=== PATIENT | male | born 2000 | race Caucasian/White ===

== ENCOUNTER 2024-03-03 13:42 | Emergency (ER) | payer OTHER ==
[2024-03-03 13:47] VITALS: TEMP 97
--- NOTE | 2024-03-03 13:49 | ERPHSYRPT ---
- History of Present Illness Time Seen by Provider: 03/03/24 13:48 Historian: patient Exam Limitations: no limitations Patient Subjective Stated Complaint: Pt states "I have had chest pain for the past 2 weeks." Triage Nursing Assessment: Pt presented alert and oriented X 3, skin pwd. Pt ambulates with an upright steady gait, able to speak in clear full sentences. PT resting comfortably on the bed. Physician History: This is a 23-year-old white male patient who presents with intermittent sharp left anterior chest pain for 2 weeks. Patient states that this pain has been sharp and sometimes associated with shortness of breath. Earlier today became more constantly sharp with more intensity. However, the pain completely stopped/resolved 20 minutes prior to arrival. Patient denies medication use. Patient denies illicit drug use. Patient is a daily smoker of tobacco cigarettes. Patient has no known drug allergies. His vital signs are stable upon arrival to the emergency department and his room air oxygen saturation levels 98 to 99%. Timing/Duration: week(s) (2), intermittent, worse (Became constant late morning. Completely resolved 20 minutes prior to arrival) Chest Pain Radiation: no radiation Severity of Pain-Max: moderate Severity of Pain-Current: mild Modifying Factors: Improves With: nothing Associated Symptoms: denies symptoms Prior Chest Pain/Cardiac Workup: no prior chest pain Nitro Today/Relief: no nitro taken today Aspirin Treatment Today: no aspirin today Allergies/Adverse Reactions: No Known Drug Allergies Allergy (Verified 03/03/24 13:47) Home Medications: No Reportable Medications [No Reported Medications] 03/03/24 [History] Hx Tetanus, Diphtheria Vaccination/Date Given: No Hx Influenza Vaccination/Date Given: No Hx Pneumococcal Vaccination/Date Given: No Immunizations Up to Date: No Travel Risk - International Travel Have you traveled outside of the country in past 3 weeks: No - Emerging Infectious Disease Are you exhibiting symptoms associated with any current EIDs: No - Review of Systems Constitutional: No Symptoms Eyes: No Symptoms Ears, Nose, & Throat: No Symptoms Respiratory: No Symptoms Cardiac: Chest Pain Abdominal/Gastrointestinal: No Symptoms Genitourinary Symptoms: No Symptoms Musculoskeletal: No Symptoms Skin: No Symptoms Neurological: No Symptoms Psychological: No Symptoms Endocrine: No Symptoms Hematologic/Lymphatic: No Symptoms Immunological/Allergic: No Symptoms All Other Systems: Reviewed and Negative - Past Medical History Pertinent Past Medical History: No - Past Surgical History Past Surgical History: No - Social History Smoking Status: Current every day smoker How long have you smoked: years Exposure to second hand smoke: No Drug Use: none - Social Determinants of Health Will the patient participate in the screening: Declined to provide - Nursing Vital Signs Nursing Vital Signs: Initial Vital Signs Temperature 97.0 F 03/03/24 13:42 Pulse Rate 96 H 03/03/24 13:42 Respiratory Rate 20 03/03/24 13:42 Blood Pressure 154/90 03/03/24 13:42 O2 Sat by Pulse Oximetry 98 03/03/24 13:42 Pain Scale Pain Intensity 0 - Physical Exam General Appearance: no apparent distress, alert, anxiety Eye Exam: PERRL/EOMI, eyes nml inspection Ears, Nose, Throat Exam: normal ENT inspection, moist mucous membranes Neck Exam: normal inspection, non-tender, supple, full range of motion Respiratory Exam: normal breath sounds, lungs clear, airway intact, No chest tenderness, No respiratory distress Cardiovascular Exam: regular rate/rhythm, normal heart sounds, normal peripheral pulses Gastrointestinal/Abdomen Exam: soft, normal bowel sounds, No tenderness Rectal Exam: not done Back Exam: normal inspection, normal range of motion, No CVA tenderness, No vertebral tenderness Extremity Exam: normal inspection, normal range of motion, pelvis stable Neurologic Exam: alert, oriented x 3, cooperative, 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 QTc is 411.) Ordered Tests: Active Orders 24 hr Category Date Time Status Inspector Metal Can STAT Care 03/03/24 13:49 Active EKG-ER Only STAT Care 03/03/24 13:48 Active IV Insertion STAT Care 03/03/24 13:48 Active Pulse Oximetry (ED) STAT Care 03/03/24 13:48 Active CHEST 1 VIEW (PORTABLE) Stat Exams 03/03/24 14:00 Completed CBC W DIFF Stat Lab 03/03/24 13:48 Completed CMP Stat Lab 03/03/24 14:01 Completed D-DIMER QUANTITATIVE Stat Lab 03/03/24 14:01 Completed MAGNESIUM Stat Lab 03/03/24 14:01 Completed PROTIME WITH INR Stat Lab 03/03/24 14:01 Completed TROPONIN Q4H Lab 03/03/24 14:01 Completed TROPONIN Q4H Lab 03/03/24 18:00 Ordered TROPONIN Q4H Lab 03/03/24 22:00 Ordered Medication Summary Discontinued Medications Generic Name Dose Route Start Last Admin Trade Name Nimesh PRN Reason Stop Dose Admin Aspirin 324 mg 03/03/24 13:48 03/03/24 13:54 Aspirin 81 Mg Tab.Chew PO 03/03/24 13:49 324 mg STAT ONE Administration Aspirin Confirm 03/03/24 13:54 Aspirin 81 Mg Tab.Chew Administered 03/03/24 13:55 Dose 81 mg .ROUTE .STK-MED ONE Lab/Rad Data: Laboratory Result Diagrams 03/03/24 13:48 03/03/24 14:01 Laboratory Results 03/03/24 03/03/24 03/03/24 Range/Units 14:01 14:01 14:01 WBC (4.23-9.07) x10^3/uL RBC (4.63-6.08) x10^6/uL Hgb (13.7-17.5) g/dL Hct (40.1-51.0) % MCV (79.0-92.2) fL MCH (25.7-32.2) pg MCHC (32.3-36.5) g/dL RDW (11.6-14.4) % Plt Count (163-337) x10^3/uL MPV (9.4-12.4) fL Gran % (34.0-67.9) % Immature Gran % (Auto) (0.001-0.429) % Nucleat RBC Rel Count (0.00-0.2) % Eos # (Auto) (0.04-0.54) x10^3/uL Immature Gran # (Auto) (0.001-0.031) x10^3u/L Absolute Lymphs (auto) (1.32-3.57) x10^3/uL Absolute Monos (auto) (0.30-0.82) x10^3/uL Absolute Nucleated RBC (0.00-0.012) x10^3u/L Lymphocytes % (21.8-53.1) % Monocytes % (5.3-12.2) % Eosinophils % (0.8-7.0) % Basophils % (0.2-1.2) % Absolute Granulocytes (1.78-5.38) x10^3/uL Basophils # (0.01-0.08) x10^3/uL PT 10.3 (9.4-12.5) SECONDS INR 0.94 (0.8-3.0) D-Dimer < 0.19 (0.0-0.50) mg/L Sodium 140 (135-145) mmol/L Potassium 3.8 (3.5-5.1) mmol/L Chloride 107 (98-107) mmol/L Carbon Dioxide 23 (22-30) mmol/L Anion Gap 14.6 (5-15) MEQ/L BUN 14 (9-20) mg/dL Creatinine 1.03 (0.66-1.25) mg/dL Estimated GFR 104.7 ML/MIN Glucose 136 H (74-106) mg/dL Calcium 9.7 (8.4-10.2) mg/dL Magnesium 1.9 (1.6-2.3) mg/dL Total Bilirubin 0.20 (0.2-1.3) mg/dL AST 37 (17-59) U/L ALT 62 H (0-50) U/L Alkaline Phosphatase 53 (38-126) U/L Troponin I < 0.012 (0.000-0.033) ng/mL Serum Total Protein 7.4 (6.3-8.2) g/dL Albumin 4.8 (3.5-5.0) g/dL 03/03/24 Range/Units 13:48 WBC 9.3 H (4.23-9.07) x10^3/uL RBC 5.16 (4.63-6.08) x10^6/uL Hgb 15.8 (13.7-17.5) g/dL Hct 45.6 (40.1-51.0) % MCV 88.4 (79.0-92.2) fL MCH 30.6 (25.7-32.2) pg MCHC 34.6 (32.3-36.5) g/dL RDW 12.5 (11.6-14.4) % Plt Count 356 H (163-337) x10^3/uL MPV 9.4 (9.4-12.4) fL Gran % 64.2 (34.0-67.9) % Immature Gran % (Auto) 0.3 (0.001-0.429) % Nucleat RBC Rel Count 0.0 (0.00-0.2) % Eos # (Auto) 0 L (0.04-0.54) x10^3/uL Immature Gran # (Auto) 0.03 (0.001-0.031) x10^3u/L Absolute Lymphs (auto) 2.65 (1.32-3.57) x10^3/uL Absolute Monos (auto) 0.59 (0.30-0.82) x10^3/uL Absolute Nucleated RBC 0.00 (0.00-0.012) x10^3u/L Lymphocytes % 28.6 (21.8-53.1) % Monocytes % 6.4 (5.3-12.2) % Eosinophils % 0.0 L (0.8-7.0) % Basophils % 0.5 (0.2-1.2) % Absolute Granulocytes 5.95 H (1.78-5.38) x10^3/uL Basophils # 0.05 (0.01-0.08) x10^3/uL PT (9.4-12.5) SECONDS INR (0.8-3.0) D-Dimer (0.0-0.50) mg/L Sodium (135-145) mmol/L Potassium (3.5-5.1) mmol/L Chloride (98-107) mmol/L Carbon Dioxide (22-30) mmol/L Anion Gap (5-15) MEQ/L BUN (9-20) mg/dL Creatinine (0.66-1.25) mg/dL Estimated GFR ML/MIN Glucose (74-106) mg/dL Calcium (8.4-10.2) mg/dL Magnesium (1.6-2.3) mg/dL Total Bilirubin (0.2-1.3) mg/dL AST (17-59) U/L ALT (0-50) U/L Alkaline Phosphatase (38-126) U/L Troponin I (0.000-0.033) ng/mL Serum Total Protein (6.3-8.2) g/dL Albumin (3.5-5.0) g/dL - Progress Progress: improved, re-examined Air Movement: good Progress Note: 03/03/24 14:27 My medical decision making in the assignment of moderate complexity to this patient's medical issue today is based on review of the patient's past medical history, reviewed patient's medication list, reviewed patient drug allergy list, history present illness and physical findings on examination. The workup includes placement of a intravenous line, CBC, CMP, magnesium level, D-dimer level, PT/INR, troponin level, twelve-lead EKG. Differential diagnosis includes but is not limited to electrolyte abnormalities, arrhythmia, pulmonary embolus, myocardial infarction, electrolyte abnormalities, anxiety about health. 03/03/24 15:04 I interpreted the patient's laboratory data results. Based on the laboratory data results the patient has no acute or emergent medical issue. Patient heart score is low and less than 4. The chest x-ray was interpreted by the radiologist and I reviewed the impression. The impression states normal chest x-ray findings. No acute cardiopulmonary process. Blood Culture(s) Obtained: No Antibiotics given: No Counseled pt/family regarding: lab results, diagnosis, need for follow-up, rad results Medical Desision Making - Diagnostic Testing Diagnostic test were ordered, analyzed, and reviewed by me: Yes Radiological Interpretation: Reviewed by me, Teleradiologist Report - Risk of complications Minimal Risk: Minimal risk of morbidity - Departure Departure Disposition: Home Clinical Impression: Nonspecific chest pain Condition: Stable Critical Care Time: No Additional Instructions: Drink plenty fluids. Take Tylenol and ibuprofen for pain control. Call your primary care provider today to make arrange for follow-up appointment to be seen in the next 3 to 5 days.
[2024-03-03] MEDS ORDERED: BABY ASPIRIN 81 MG CHEW ONE (13:54)
[2024-03-03] MEDS: BABY ASPIRIN 81 MG CHEW PO ONE (13:54)
[2024-03-03 13:58] LABS: Absolute Neutrophil Ct (ANC) 5.95 x10^3/uL (1.78-5.38); BASOPHIL % 0.5 % (0.2-1.2); Basophil (Absolute #) 0.05 x10^3/uL (0.01-0.08); Eosinophil (Absolute #) 0 x10^3/uL (0.04-0.54); Hematocrit 45.6 % (40.1-51.0); Hemoglobin 15.8 g/dL (13.7-17.5); IMMATURE GRAN # 0.03 x10^3u/L (0.001-0.031); IMMATURE GRAN % 0.3 % (0.001-0.429); Lymphocyte (Absolute #) 2.65 x10^3/uL (1.32-3.57); Lymphocytes % 28.6 % (21.8-53.1); Mean Cell Volume 88.4 fL (79.0-92.2); Mean Corpuscular Hemoglobin 30.6 pg (25.7-32.2); Mean Corpuscular Hgb Concent. 34.6 g/dL (32.3-36.5); Mean Platelet Volume 9.4 fL (9.4-12.4); Monocyte (Absolute #) 0.59 x10^3/uL (0.30-0.82); Monocytes % 6.4 % (5.3-12.2); Neutrophil % 64.2 % (34.0-67.9); Platelet Count 356 x10^3/uL (163-337); Red Blood Count 5.16 x10^6/uL (4.63-6.08); Red Cell Distribution Width 12.5 % (11.6-14.4); White Blood Count 9.3 x10^3/uL (4.23-9.07)
[2024-03-03 14:16] LABS: ALBUMIN 4.8 g/dL (3.5-5.0); ANION GAP 14.6 MEQ/L (5-15); BILIRUBIN,TOTAL 0.2 mg/dL (0.2-1.3); Calcium 9.7 mg/dL (8.4-10.2); Creatinine 1 1.03 mg/dL (0.66-1.25); D-DIMER QUANTITATIVE < 0.19 mg/L (0.0-0.50); EST GLOMERULAR FILTRATION RATE 104.7 ML/MIN; INR 0.94 (0.8-3.0); MAGNESIUM 1.9 mg/dL (1.6-2.3); PROTIME 10.3 SECONDS (9.4-12.5); Potassium 3.8 mmol/L (3.5-5.1); Total Protein 7.4 g/dL (6.3-8.2)
--- NOTE | 2024-03-03 14:21 | XRAY ---
Indication: Chest pain. Comparison: None Portable chest demonstrates normal heart, lungs, and bony thorax.
[2024-03-03 15:08] VITALS: O2SAT 98
[2024-03-03 15:13] VITALS: BP 125/65; PULSE 81; RESP 14
== END 2024-03-03 15:25 | disposition home or self-care (01) ==
LOC: ED 13:42
DX: R07.9 Chest pain, unspecified (principal); Z72.0 Tobacco use
CPT/HCPCS: 36000; 36415; 71045; 80053; 83735; 84484; 85025; 85379; 85610; 93005; 93041; 94760; 99284; A9270-GY

== ENCOUNTER 2024-03-14 09:23 | Emergency (ER) | payer OTHER ==
--- NOTE | 2024-03-14 09:27 | ERPHSYRPT ---
- History of Present Illness Time Seen by Provider: 03/14/24 09:27 Source: patient Exam Limitations: no limitations Physician History: This is a 23-year-old white male patient and does not have a primary care provider, he takes no medications chronically and he has no known drug allergies and presents with shortness of breath that is worsened over the last few days. His room air oxygen saturation level on arrival is 96%. He does not appear to be in any distress. He arrives by private vehicle. On 03/03/2024 patient had a full workup to evaluate him for his chest pain symptoms. That workup was negative. An EKG was performed and it showed normal sinus rhythm at 93 bpm. The remainder of the EKG was normal and nonacute. Today's twelve-lead EKG will be compared to that twelve-lead EKG. Patient is a daily smoker of tobacco cigarettes. He does state at his work he is exposed to a lot of dust and chemicals. He denies illicit drug use. He denies chest pain. He denies fever. He denies cough. He denies abdominal pain. Timing/Duration: day(s) (The last few days) Activities at Onset: activity (Worsens) Severity of Dyspnea-Max: mild (To moderate) Severity of Dyspnea-Current: mild (To moderate) Possible Cause: no prior episodes Modifying Factors: Improves With: activity (Worsens) Associated Symptoms: denies symptoms, No cough, No chest pain/discomfort, No fever, No leg swelling, No productive cough Allergies/Adverse Reactions: No Known Drug Allergies Allergy (Verified 03/14/24 09:29) Hx Tetanus, Diphtheria Vaccination/Date Given: No Hx Influenza Vaccination/Date Given: No Hx Pneumococcal Vaccination/Date Given: No Travel Risk - International Travel Have you traveled outside of the country in past 3 weeks: No - Emerging Infectious Disease Are you exhibiting symptoms associated with any current EIDs: No - Review of Systems Constitutional: No Symptoms Eyes: No Symptoms Ears, Nose, & Throat: No Symptoms Respiratory: Dyspnea (Mild to moderate) Cardiac: No Symptoms Abdominal/Gastrointestinal: No Symptoms Genitourinary Symptoms: No Symptoms Musculoskeletal: No Symptoms Skin: No Symptoms Neurological: No Symptoms Psychological: No Symptoms Endocrine: No Symptoms Hematologic/Lymphatic: No Symptoms Immunological/Allergic: No Symptoms All Other Systems: Reviewed and Negative - Past Medical History Pertinent Past Medical History: No - Past Surgical History Past Surgical History: No - Social History Smoking Status: Current every day smoker How long have you smoked: years Exposure to second hand smoke: No Drug Use: none - Social Determinants of Health Will the patient participate in the screening: Declined to provide - Nursing Vital Signs Nursing Vital Signs: Initial Vital Signs Blood Pressure 112/70 03/14/24 09:30 O2 Sat by Pulse Oximetry 95 03/14/24 09:30 Pain Scale Pain Intensity 0 - Physical Exam General Appearance: no apparent distress, alert, anxiety Eye Exam: PERRL/EOMI, eyes nml inspection Ears, Nose, Throat Exam: hearing grossly normal, normal ENT inspection, normal pharynx Neck Exam: normal inspection, non-tender, supple, full range of motion Respiratory Exam: normal breath sounds, lungs clear, airway intact, No chest tenderness, No respiratory distress Cardiovascular/Chest Exam: normal heart sounds, regular rate/rhythm Abdominal/Gastrointestinal Exam: soft, normal bowel sounds, No tenderness Rectal Exam: not done Extremity Exam: non-tender, normal range of motion, normal inspection Neurologic Exam: alert, oriented x 3, cooperative, 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 tested, nml cerebellar function, nml station & gait, sensation nml Skin Exam: normal color, warm, dry Lymphatic Exam: No adenopathy SpO2 Interpretation: normal O2 Delivery: Room Air - Course Nursing assessment & vital signs reviewed: Yes Ordered Tests: Active Orders 24 hr Category Date Time Status Systems Qa Analyst STAT Care 03/14/24 09:53 Active EKG-ER Only STAT Care 03/14/24 09:53 Active CHEST 1 VIEW (PORTABLE) Stat Exams 03/14/24 09:53 Completed CBC W DIFF Stat Lab 03/14/24 10:10 Completed CMP Stat Lab 03/14/24 10:10 Completed D-DIMER QUANTITATIVE Stat Lab 03/14/24 10:10 Completed MAGNESIUM Stat Lab 03/14/24 10:10 Completed TROPONIN Q4H Lab 03/14/24 10:10 Completed TROPONIN Q4H Lab 03/14/24 14:00 Ordered TROPONIN Q4H Lab 03/14/24 18:00 Ordered Lab/Rad Data: Laboratory Result Diagrams 03/14/24 10:10 03/14/24 10:10 Laboratory Results 03/14/24 03/14/24 03/14/24 Range/Units 10:10 10:10 10:10 WBC (4.23-9.07) x10^3/uL RBC (4.63-6.08) x10^6/uL Hgb (13.7-17.5) g/dL Hct (40.1-51.0) % MCV (79.0-92.2) fL MCH (25.7-32.2) pg MCHC (32.3-36.5) g/dL RDW (11.6-14.4) % Plt Count (163-337) x10^3/uL MPV (9.4-12.4) fL Gran % (34.0-67.9) % Immature Gran % (Auto) (0.001-0.429) % Nucleat RBC Rel Count (0.00-0.2) % Eos # (Auto) (0.04-0.54) x10^3/uL Immature Gran # (Auto) (0.001-0.031) x10^3u/L Absolute Lymphs (auto) (1.32-3.57) x10^3/uL Absolute Monos (auto) (0.30-0.82) x10^3/uL Absolute Nucleated RBC (0.00-0.012) x10^3u/L Lymphocytes % (21.8-53.1) % Monocytes % (5.3-12.2) % Eosinophils % (0.8-7.0) % Basophils % (0.2-1.2) % Absolute Granulocytes (1.78-5.38) x10^3/uL Basophils # (0.01-0.08) x10^3/uL D-Dimer < 0.19 (0.0-0.50) mg/L Sodium 139 (135-145) mmol/L Potassium 3.9 (3.5-5.1) mmol/L Chloride 106 (98-107) mmol/L Carbon Dioxide 25 (22-30) mmol/L Anion Gap 11.9 (5-15) MEQ/L BUN 17 (9-20) mg/dL Creatinine 0.88 (0.66-1.25) mg/dL Estimated GFR 123.9 ML/MIN Glucose 109 H (74-106) mg/dL Calcium 9.6 (8.4-10.2) mg/dL Magnesium 2.0 (1.6-2.3) mg/dL Total Bilirubin 0.40 (0.2-1.3) mg/dL AST 51 (17-59) U/L ALT 82 H (0-50) U/L Alkaline Phosphatase 61 (38-126) U/L Troponin I < 0.012 (0.000-0.033) ng/mL Serum Total Protein 7.1 (6.3-8.2) g/dL Albumin 4.5 (3.5-5.0) g/dL Influenza Type A Ag (NEGATIVE) Influenza Type B Ag (NEGATIVE) RSV (PCR) (NEGATIVE) SARS-CoV-2 (PCR) (NEGATIVE) 03/14/24 03/14/24 Range/Units 10:10 10:09 WBC 8.8 (4.23-9.07) x10^3/uL RBC 5.00 (4.63-6.08) x10^6/uL Hgb 15.2 (13.7-17.5) g/dL Hct 44.9 (40.1-51.0) % MCV 89.8 (79.0-92.2) fL MCH 30.4 (25.7-32.2) pg MCHC 33.9 (32.3-36.5) g/dL RDW 12.6 (11.6-14.4) % Plt Count 275 (163-337) x10^3/uL MPV 10.0 (9.4-12.4) fL Gran % 70.2 H (34.0-67.9) % Immature Gran % (Auto) 0.7 H (0.001-0.429) % Nucleat RBC Rel Count 0.0 (0.00-0.2) % Eos # (Auto) 0.03 L (0.04-0.54) x10^3/uL Immature Gran # (Auto) 0.06 H (0.001-0.031) x10^3u/L Absolute Lymphs (auto) 1.95 (1.32-3.57) x10^3/uL Absolute Monos (auto) 0.56 (0.30-0.82) x10^3/uL Absolute Nucleated RBC 0.00 (0.00-0.012) x10^3u/L Lymphocytes % 22.1 (21.8-53.1) % Monocytes % 6.4 (5.3-12.2) % Eosinophils % 0.3 L (0.8-7.0) % Basophils % 0.3 (0.2-1.2) % Absolute Granulocytes 6.18 H (1.78-5.38) x10^3/uL Basophils # 0.03 (0.01-0.08) x10^3/uL D-Dimer (0.0-0.50) mg/L Sodium (135-145) mmol/L Potassium (3.5-5.1) mmol/L Chloride (98-107) mmol/L Carbon Dioxide (22-30) mmol/L Anion Gap (5-15) MEQ/L BUN (9-20) mg/dL Creatinine (0.66-1.25) mg/dL Estimated GFR ML/MIN Glucose (74-106) mg/dL Calcium (8.4-10.2) mg/dL Magnesium (1.6-2.3) mg/dL Total Bilirubin (0.2-1.3) mg/dL AST (17-59) U/L ALT (0-50) U/L Alkaline Phosphatase (38-126) U/L Troponin I (0.000-0.033) ng/mL Serum Total Protein (6.3-8.2) g/dL Albumin (3.5-5.0) g/dL Influenza Type A Ag NEGATIVE (NEGATIVE) Influenza Type B Ag NEGATIVE (NEGATIVE) RSV (PCR) NEGATIVE (NEGATIVE) SARS-CoV-2 (PCR) NEGATIVE (NEGATIVE) - Progress Progress: re-examined Air Movement: good Progress Note: 03/14/24 10:15 My medical decision making and the assignment of moderate complexity to this patient's medical issue today is based on review of the patient's past medical history, review of the patient's medication list, review patient drug allergy list, history presence and physical findings on examination. The workup in this patient includes CBC, CMP, troponin level, D-dimer level, twelve-lead EKG, chest x-ray, viral swabs. Differential diagnosis includes but is not limited to myocardial infarction, pneumonia, bronchitis, pulmonary embolus, electrolyte abnormalities, anemia, arrhythmia 03/14/24 10:41 The chest x-ray was interpreted by the radiologist and I reviewed the impression. The impression states no interval change from that chest x-ray that was performed on 03/03/2024. There is no evidence of any acute cardiopulmonary process. 03/14/24 10:55 I interpreted the patient's laboratory data results. Based on the laboratory data results, patient does not have any acute or emergent medical issue. Blood Culture(s) Obtained: No Antibiotics given: No Counseled pt/family regarding: lab results, diagnosis, need for follow-up, rad results Medical Desision Making - Diagnostic Testing Diagnostic test were ordered, analyzed, and reviewed by me: Yes Radiological Interpretation: Reviewed by me, Teleradiologist Report - Risk of complications The pt has a mod risk of morbidity or mortality based on: Need for prescription drug management - Departure Departure Disposition: Home Clinical Impression: Shortness of breath Condition: Stable Critical Care Time: No Referrals: DOCTOR,NO FAMILY [Primary Care Provider] - Follow up/PCP as directed Additional Instructions: Stop smoking tobacco cigarettes or any other form of vaping or inhalant. Take your medication as prescribed. Call the primary care provider today, 03/14/2024, from the list provided and make arrangements for a follow-up appointment. Forms: Work/School Release Form Prescriptions: Prednisone 10 mg [Deltasone 10 mg] 10 mg PO TID #12 tablet Albuterol 8 gm Mdi Hfa [Ventolin Hfa MDI] 8 gm IH Q4H #1 unit
[2024-03-14 09:36] VITALS: RESP 18; TEMP 98.5
[2024-03-14 10:11] LABS: Absolute Neutrophil Ct (ANC) 6.18 x10^3/uL (1.78-5.38); BASOPHIL % 0.3 % (0.2-1.2); Basophil (Absolute #) 0.03 x10^3/uL (0.01-0.08); Eosinophil % 0.3 % (0.8-7.0); Eosinophil (Absolute #) 0.03 x10^3/uL (0.04-0.54); Hematocrit 44.9 % (40.1-51.0); Hemoglobin 15.2 g/dL (13.7-17.5); IMMATURE GRAN # 0.06 x10^3u/L (0.001-0.031); IMMATURE GRAN % 0.7 % (0.001-0.429); Lymphocyte (Absolute #) 1.95 x10^3/uL (1.32-3.57); Lymphocytes % 22.1 % (21.8-53.1); Mean Cell Volume 89.8 fL (79.0-92.2); Mean Corpuscular Hemoglobin 30.4 pg (25.7-32.2); Mean Corpuscular Hgb Concent. 33.9 g/dL (32.3-36.5); Monocyte (Absolute #) 0.56 x10^3/uL (0.30-0.82); Monocytes % 6.4 % (5.3-12.2); Neutrophil % 70.2 % (34.0-67.9); Platelet Count 275 x10^3/uL (163-337); Red Cell Distribution Width 12.6 % (11.6-14.4); White Blood Count 8.8 x10^3/uL (4.23-9.07)
[2024-03-14 10:24] LABS: ALBUMIN 4.5 g/dL (3.5-5.0); ANION GAP 11.9 MEQ/L (5-15); BILIRUBIN,TOTAL 0.4 mg/dL (0.2-1.3); Calcium 9.6 mg/dL (8.4-10.2); Creatinine 1 0.88 mg/dL (0.66-1.25); EST GLOMERULAR FILTRATION RATE 123.9 ML/MIN; Potassium 3.9 mmol/L (3.5-5.1); Total Protein 7.1 g/dL (6.3-8.2)
--- NOTE | 2024-03-14 10:36 | XRAY ---
CLINICAL HISTORY: Shortness of breath COMPARISON: 03/03/2024 TECHNIQUE: X-ray of the chest, AP portable FINDINGS: A radiographic examination of the chest demonstrates clear lungs. Normal configuration of the mediastinum. The jose roberto are normal in size and position. The cardiac size is normal. Costophrenic and cardiophrenic angles are clear. Bony thorax is unremarkable. IMPRESSION: No evidence of consolidation or pleural effusion. No interval changes. Electronically Signed by: Mateo Black MD. (03/14/2024 10:31:41 EDT)
[2024-03-14 10:49] LABS: INFLUENZA A NEGATIVE (NEGATIVE); INFLUENZA B NEGATIVE (NEGATIVE); RESPIRATORY SYNCTIAL VIRUS NEGATIVE (NEGATIVE); SARS-CoV-2 Xpert Express NEGATIVE (NEGATIVE)
[2024-03-14 11:03] VITALS: BP 108/64; PULSE 68; O2SAT 96
== END 2024-03-14 11:09 | disposition home or self-care (01) ==
LOC: ED 09:23
DX: R06.02 Shortness of breath (principal); Z79.52 Long term (current) use of systemic steroids; Z79.899 Other long term (current) drug therapy; Z72.0 Tobacco use
CPT/HCPCS: 0241U; 36415; 71045; 80053; 83735; 84484; 85025; 85379; 93005; 93041; 99283